=== PATIENT | female | born 1955 | race Caucasian/White ===

== ENCOUNTER → 2016-06-25 | Outpatient (CLI) | payer MEDICARE ==
[~2016-06-25] MED LIST: ASPI-496 PO; ATOR40TA PO; AZIT500T4 PO; CEFD300C2 PO; CITA10TA8 PO; ERGO500017 PO; FAMO20TA7 PO; FENT1PAT76 TP; FENT1PAT77 TP; FEXO180T5 PO; GABA100C8 PO; HYDR-3307 PO; LEVO100T PO; LINE600T37 PO; MELO-190 PO; NORT25CA PO; PANT40TA5 PO; PREG75CA PO; PROM25TA10 PO; TICA90TA PO; TIZA4CAP PO; TRAZ150T68 PO
[2016-06-25 15:54] LABS: BLOOD UREA NITROGEN 11 mg/dL (7-18)
[2016-06-25 16:05] LABS: ASPARTATE AMINO TRANSFERASE 16 U/L (15-37)
== END | disposition home or self-care (01) ==
LOC: CFH 13:01
PROVIDERS: ATTEND Genetic Counselor, MS
DX: E03.9 Hypothyroidism, unspecified (principal); I10 Essential (primary) hypertension
CPT/HCPCS: 36415; 80053; 84439; 84443; 84481; 86376

== ENCOUNTER → 2016-11-16 | Outpatient (CLI) | payer MEDICARE ==
[~2016-11-16] MED LIST changes: -AZIT500T4 PO; +AZIT500T77 PO; -CEFD300C2 PO; +CEFD300C37 PO; +GABA-826 PO; -GABA100C8 PO
== END | disposition home or self-care (01) ==
LOC: LAB 11:58
PROVIDERS: ATTEND Genetic Counselor, MS
DX: E03.9 Hypothyroidism, unspecified (principal)
CPT/HCPCS: 36415; 84436; 84443

== ENCOUNTER → 2017-01-01 | Outpatient (CLI) | payer MEDICARE ==
[~2017-01-01] MED LIST changes: +AZIT500T5 PO; -AZIT500T77 PO; +FEXO180T15 PO; -FEXO180T5 PO; -MELO-190 PO; +MELO7.5T31 PO; +TRAZ150T62 PO; -TRAZ150T68 PO
== END | disposition home or self-care (01) ==
LOC: CFH 13:49
PROVIDERS: ATTEND Nurse Practitioner Family
DX: Z12.31 Encounter for screening mammogram for malignant neoplasm of breast (principal); Z13.820 Encounter for screening for osteoporosis; M19.012 Primary osteoarthritis, left shoulder; M85.88 Other specified disorders of bone density and structure, other site; Z78.0 Asymptomatic menopausal state
CPT/HCPCS: 73030; 77080; G0202

== ENCOUNTER → 2017-11-19 | Outpatient (CLI) | payer MEDICARE ==
[~2017-11-19] MED LIST changes: +GADOBUTROL 7.5 MMOL/7.5 ML PFS ONE
== END | disposition home or self-care (01) ==
LOC: CFH 14:57
PROVIDERS: ATTEND Nurse Practitioner Primary Care
DX: R51 Headache (principal); I10 Essential (primary) hypertension; I25.10 Atherosclerotic heart disease of native coronary artery without angina pectoris; Z85.850 Personal history of malignant neoplasm of thyroid; Z87.891 Personal history of nicotine dependence
CPT/HCPCS: 70553; 82565; A9585

== ENCOUNTER → 2018-03-18 | Outpatient (CLI) | payer MEDICARE ==
[~2018-03-18] MED LIST changes: -NORT25CA PO; +NORT25CA78 PO
== END | disposition home or self-care (01) ==
LOC: CFH 14:19
PROVIDERS: ATTEND Genetic Counselor, MS
DX: Z12.31 Encounter for screening mammogram for malignant neoplasm of breast (principal); Z12.2 Encounter for screening for malignant neoplasm of respiratory organs; R51 Headache; I25.10 Atherosclerotic heart disease of native coronary artery without angina pectoris; R91.1 Solitary pulmonary nodule; Z87.891 Personal history of nicotine dependence
CPT/HCPCS: 70553; 77067; 82565; A9585; G0297

== ENCOUNTER 2018-05-29 17:06 | Outpatient (CLI) | payer MEDICARE ==
[~2018-05-29 17:06] MED LIST changes: -GADOBUTROL 7.5 MMOL/7.5 ML PFS ONE; +OMNIPAQUE 350 MG/ML, 100ML BOTTLE ONE
[2018-05-29 18:05] LABS: CREATININE 1.33 mg/dL (0.55-1.02)
== END 2018-05-29 23:59 | disposition home or self-care (01) ==
LOC: RAD 17:06
PROVIDERS: ATTEND Genetic Counselor, MS
DX: K42.9 Umbilical hernia without obstruction or gangrene (principal); I87.8 Other specified disorders of veins; I70.0 Atherosclerosis of aorta; Z90.49 Acquired absence of other specified parts of digestive tract; Z90.710 Acquired absence of both cervix and uterus
CPT/HCPCS: 36415; 74177; 82565; Q9967

== ENCOUNTER → 2018-10-08 | Outpatient (CLI) | payer MEDICARE, MEDICAID ==
[~2018-10-08] MED LIST changes: -OMNIPAQUE 350 MG/ML, 100ML BOTTLE ONE
== END | disposition home or self-care (01) ==
LOC: CFH 14:15
PROVIDERS: ATTEND Genetic Counselor, MS
DX: M47.816 Spondylosis without myelopathy or radiculopathy, lumbar region (principal); M48.061 Spinal stenosis, lumbar region without neurogenic claudication; M47.815 Spondylosis without myelopathy or radiculopathy, thoracolumbar region; M51.26 Other intervertebral disc displacement, lumbar region; M81.0 Age-related osteoporosis without current pathological fracture; N95.1 Menopausal and female climacteric states; R15.9 Full incontinence of feces
CPT/HCPCS: 72148; 77080

== ENCOUNTER → 2019-01-23 | Outpatient (CLI) | payer MEDICARE, MEDICAID ==
[~2019-01-23] MED LIST changes: +AZIT500T10 PO; -AZIT500T5 PO; -HYDR-3307 PO; +HYDR-36 PO; +LINE600T12 PO; -LINE600T37 PO; +REGADENOSON 0.4 MG/5 ML SYRINGE ONE
== END | disposition home or self-care (01) ==
LOC: CFH 08:35
PROVIDERS: ATTEND Internal Medicine Cardiovascular Disease
DX: I25.10 Atherosclerotic heart disease of native coronary artery without angina pectoris (principal); I51.7 Cardiomegaly
CPT/HCPCS: 78452; 93017; A9502; J2785

== ENCOUNTER → 2019-05-06 | Outpatient (CLI) | payer MEDICARE ==
[~2019-05-06] MED LIST changes: -REGADENOSON 0.4 MG/5 ML SYRINGE ONE
== END | disposition home or self-care (01) ==
LOC: CFH 13:58
PROVIDERS: ATTEND Internal Medicine
DX: Z12.2 Encounter for screening for malignant neoplasm of respiratory organs (principal); R91.1 Solitary pulmonary nodule; I25.10 Atherosclerotic heart disease of native coronary artery without angina pectoris; Z87.891 Personal history of nicotine dependence
CPT/HCPCS: G0297

== ENCOUNTER 2020-04-11 13:37 | Outpatient (CLI) | payer MEDICARE, MEDICAID ==
[~2020-04-11 13:37] MED LIST changes: +HYDR-3248 PO; -HYDR-36 PO; -PANT40TA5 PO; +PANT40TA6 PO
== END 2020-04-11 23:59 | disposition home or self-care (01) ==
LOC: CVU 13:37
PROVIDERS: ATTEND Internal Medicine Cardiovascular Disease
DX: I25.10 Atherosclerotic heart disease of native coronary artery without angina pectoris (principal); I10 Essential (primary) hypertension; R07.89 Other chest pain; I25.2 Old myocardial infarction; Z87.891 Personal history of nicotine dependence
CPT/HCPCS: 93306

== ENCOUNTER → 2020-10-21 | Outpatient (CLI) | payer MEDICARE, MEDICAID | END | disposition home or self-care (01) | LOC: CFH 15:22 → EDSTATUS 15:45 | PROVIDERS: ATTEND Genetic Counselor, MS | DX: R10.10 Upper abdominal pain, unspecified (principal); Z90.49 Acquired absence of other specified parts of digestive tract | CPT/HCPCS: 76700 ==